=== PATIENT | male | born 1995 | race African-American/Black ===

== ENCOUNTER 2022-03-27 23:44 | Emergency (ER) | payer SELFPAY ==
[~2022-03-27] VITALS: Ht 182.9 cm; Wt 104.4 kg
[2022-03-28 00:24] VITALS: BP 129/77
[2022-03-28] MEDS ORDERED: KETOROLAC 30MG/ML VIAL IM ONE (01:15)
[2022-03-28] MEDS ORDERED: METOCLOPRAMIDE HCL 10MG TABLET PO ONE (01:15)
== END 2022-03-28 02:45 | disposition home or self-care (01) ==
LOC: ER 23:44
DX: R51.9 Headache, unspecified (principal); H53.8 Other visual disturbances; Z98.890 Other specified postprocedural states
CPT/HCPCS: 96372; 99283; J1885; J8597